=== PATIENT | female | born 1965 | race Caucasian/White ===

== ENCOUNTER → 2016-05-06 | Outpatient (CLI) | payer OTHER | END | disposition home or self-care (01) | LOC: GMAM 16:43 | PROVIDERS: ATTEND Family Medicine | DX: E04.1 Nontoxic single thyroid nodule (principal) ==

== ENCOUNTER → 2016-05-13 | Outpatient (CLI) | payer OTHER ==
--- NOTE | 2016-05-13 16:37 | RAD ---
EXAM DESCRIPTION: Lumbar Spine 3 Views CLINICAL HISTORY: LOW BACK PAIN COMPARISON: None Available. TECHNIQUE: AP/lateral/coned-down lateral FINDINGS: Mild anterior subluxation of L4 on L5 is observed. Partial sacralization of the L5 vertebral body is observed. There is loss of disc height at the L4-5 and L5-S1 levels. 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 IMPRESSION: Some partial sacralization of L5 is observed. Degenerative changes are observed in the lower lumbar spine particularly at the L4-5 and L5-S1 levels. Electronically signed by: Roger Hardwick MD 05/13/2016 4:36 PM CDT
--- NOTE | 2016-05-13 16:39 | RAD ---
EXAM DESCRIPTION: Pelvis CLINICAL HISTORY: LOW BACK PAIN COMPARISON: None. TECHNIQUE: AP pelvis FINDINGS: Phleboliths are observed in the pelvis. No fracturing is detected. Degenerative changes are observed in the lower lumbar spine. The proximal femurs are unremarkable. Sacroiliac joints are intact. IMPRESSION: Unremarkable pelvis. Electronically signed by: Roger Hardwick MD 05/13/2016 4:38 PM CDT
== END | disposition home or self-care (01) ==
LOC: RAD 08:47
PROVIDERS: ATTEND Orthopaedic Surgery
DX: M51.37 Other intervertebral disc degeneration, lumbosacral region (principal); M54.5 Low back pain

== ENCOUNTER → 2016-06-15 | Outpatient (CLI) | payer OTHER | END | disposition home or self-care (01) | LOC: GMAM 17:59 | PROVIDERS: ATTEND Family Medicine | DX: E03.9 Hypothyroidism, unspecified (principal) ==